=== PATIENT | male | born 1980 | race African-American/Black ===

== ENCOUNTER 2020-03-25 09:58 | Emergency (ER) | payer OTHER ==
[~2020-03-25] VITALS: Ht 180.3 cm; Wt 99.8 kg
[~2020-03-25 09:58] MED LIST: IBUPROFEN 200200 M1; NAPROSYN500 MG PO; TRAMADOL 50 MG50 MG PO
[2020-03-25 13:45] LABS: ABSOLUTE NEUTROPHILS 1.7 thou/uL (1.4-8.2); BASOPHILS 0.6 % (0.0-2.0); EOSINOPHILS 7.1 % (0.0-3.0); HEMOGLOBIN 15.2 gm/dL (14.0-18.0); LYMPHOCYTES 45.3 % (24.0-44.0); MCHC 33.1 g/dL (28.0-37.0); MCV 90.5 fL (80.0-100.0); MONOCYTES 8.6 % (1.0-8.0); PLATELET COUNT 191 thou/uL (150-400); POLYS 38.4 % (36.0-66.0); RBC 5.08 mil/uL (4.50-6.00); RDW 13.2 % (10.5-14.5); WBC 4.3 thou/uL (4.0-11.0)
[2020-03-25 13:53] LABS: CREATININE 1.3 mg/dL (0.7-1.3)
[2020-03-25 13:57] LABS: APTT 27.3 Seconds (24.5-32.8); INR 1.1; PROTIME 10.8 Seconds (9.3-11.4)
[2020-03-25 14:00] LABS: ALBUMIN 4.2 g/dL (3.4-5.0); TOTAL BILIRUBIN 0.8 mg/dL (0.2-1.0); TOTAL PROTEIN 7.6 g/dL (6.4-8.2)
[2020-03-25] MEDS ORDERED: CARAFATE 11 GM/10 M1 PO (14:12)
[2020-03-25] MEDS ORDERED: OMEPRAZOLE40 MG PO (14:12)
[2020-03-25 14:26] VITALS: BP 141/93
== END 2020-03-25 14:27 | disposition home or self-care (01) ==
LOC: ER 09:58
PROVIDERS: Physician Assistant
DX: K92.2 Gastrointestinal hemorrhage, unspecified (principal)